=== PATIENT | female | born 1995 | race Caucasian/White ===

== ENCOUNTER 2017-07-05 06:37 | Emergency (ER) | payer OTHER ==
[~2017-07-05] VITALS: Ht 167.6 cm; Wt 80.0 kg
[~2017-07-05 06:37] MED LIST: ABX; ASCORBIC ACID500 M3 PO; DIFLUCAN150 MG PO; ENDOCET 5-3251 EACH PO; FERROUS SULFAT325 MG PO; FLINTSTONES GU1 EACH PO; IBUPROFEN800 MG PO; MEDROL DOSEPAK4 MG PO; NO HOME MEDS; PYRIDIUM200 MG PO; RITALIN; STRATTERA25 MG PO
[2017-07-05 09:13] LABS: HEMATOCRIT 34.1 % (36.0-46.0); HEMOGLOBIN 11.6 G/DL (11.9-15.5); MCH 27.2 PG (29.0-34.0); MCV 79.9 FL (83-99); PLATELET COUNT 206 K/uL (156-360); RBC DIS.WIDTH-CV 12.9 % (11.8-14.6); RBC DIS.WIDTH-SD 36.4 % (39-53); RED BLOOD COUNT 4.27 M/uL (3.80-5.20); WHITE BLOOD COUNT 12.8 K/uL (4.1-10.2)
[2017-07-05 09:27] LABS: CHLORIDE 107 mEq/L (99-109); POTASSIUM 3.6 mEq/L (3.7-5.4); SODIUM 139 mEq/L (136-147)
[2017-07-05 09:28] LABS: GLUCOSE 109 mg/dL (70-99)
[2017-07-05 09:32] LABS: CREATININE 0.7 mg/dL (0.6-1.3); GFR ESTIMATE (CALCULATED) > 59 mL/min/
[2017-07-05 09:33] LABS: UREA NITROGEN (BUN) 10 mg/dL (9-23)
[2017-07-05 09:40] LABS: QUANTITATIVE HCG < 4.0 MIU/ML
[2017-07-05 10:30] VITALS: BP 118/56
== END 2017-07-05 11:00 | disposition home or self-care (01) ==
LOC: EME 06:37
PROVIDERS: Physician Assistant
DX: F43.9 Reaction to severe stress, unspecified (principal); R07.89 Other chest pain; F32.9 Major depressive disorder, single episode, unspecified
CPT/HCPCS: 71046; 80048; 84702; 85027; 93005; 99281; 99284